=== PATIENT | female | born 1965 | race Caucasian/White ===

== ENCOUNTER 2019-09-22 13:24 | Emergency (ER) | payer MEDICAID, OTHER ==
[~2019-09-22] VITALS: Ht 162.6 cm; Wt 99.8 kg
[2019-09-22 15:04] LABS: Basophils # (auto) 0 uL; Basophils % (auto) 0.5 % (0.0-2.0); Eosinophils # (auto) 0.1 uL; Hematocrit 38.8 % (36.0-46.0); Hemoglobin 12.8 g/dL (12.2-16.2); Lymphocytes # (auto) 0.9 uL; Monocytes # (auto) 0.7 uL; Monocytes % (auto) 13.5 % (0.0-12.0); Neutrophils # (auto) 3.2 uL; Platelet Count (auto) 196 10^3/uL (140-450); Red Blood Cells 4.56 10^6/uL (4.0-5.20); Red Cell Distribution Width 15.6 % (11.8-14.3); White Blood Cell 4.9 10^3/uL (4.4-10.8)
[2019-09-22 15:13] VITALS: BP 122/83
[2019-09-22 15:24] LABS: Albumin 3.5 g/dL (3.4-5.0); Calcium 8.7 mg/dL (8.5-10.1); Chloride 106 mmol/L (98-107); Sodium 140 mmol/L (136-145)
[2019-09-22 15:32] LABS: Alanine Aminotransferase 16 U/L (13-56); Alkaline Phosphatase 88 U/L (45-117); Anion Gap 8 (5-15); Aspartate Aminotransferase 14 U/L (15-37); BUN/Creatinine Ratio 21.8; Bilirubin, Total 0.4 mg/dL (0.2-1.0); Blood Urea Nitrogen 17 mg/dL (7-18); Carbon Dioxide 26 mmol/L (21-32); GFR African American 99 mL/min; GFR Non-African American 82 mL/min; Glucose 111 mg/dL (74-106); Total Protein 7.5 g/dL (6.4-8.2)
[2019-09-22 17:19] LABS: Alcohol, Urine < 3.0 mg/dL (0-5); Amphetamine Screen, Urine NEGATIVE (NEGATIVE); Barbiturate Scree,Urine NEGATIVE (NEGATIVE); Benzodiazephine Screen, Urine NEGATIVE (NEGATIVE); Cannabinoid Screen, Urine NEGATIVE (NEGATIVE); Cocaine Screen, Urine NEGATIVE (NEGATIVE); Opiate Scree,Urine NEGATIVE (NEGATIVE); Phencyclidine Screen, Urine NEGATIVE (NEGATIVE)
== END 2019-09-22 17:39 | disposition home or self-care (01) ==
LOC: ER 13:24 → EDBD 13:24 → ER 17:39
DX: R55 Syncope and collapse (principal); I10 Essential (primary) hypertension
CPT/HCPCS: 36415; 70450; 71045; 74176; 80053; 80307; 84484; 85025; 93005

== ENCOUNTER 2020-03-30 04:30 | Inpatient (IN) | payer MEDICAID ==
[~2020-03-30] VITALS: Ht 170.2 cm; Wt 100.3 kg
[2020-03-30] MEDS ORDERED: SODIUM CHLORIDE 0.9% 1,000 ML IV ONE (06:27)
[2020-03-30 08:37] LABS: Eosinophils # (auto) 0.1 10 ^3/uL (0-0.8); Lymphocytes # (auto) 1.4 10 ^3/uL (0.4-5.4); Neutrophils # (auto) 5.9 10 ^3/uL (1.6-8.6); White Blood Cell 7.9 10^3/uL (4.4-10.8)
[2020-03-30 08:39] LABS: Basophils # (auto) 0.1 10 ^3/uL (0-0.2); Basophils % (auto) 0.7 % (0.0-2.0); Eosinophils % (auto) 1.4 % (0.0-7.0); Lymphocytes % (auto) 18.1 % (10.0-50.0); Mean Corpuscular Hemoglobin 17.5 pg (28.0-32.0); Mean Corpuscular Hgb Conc. 27.5 g/dL (32.0-36.0); Mean Corpuscular Volume 63.6 fL (80.0-100.0); Monocytes # (auto) 0.4 10 ^3/uL (0-1.3); Monocytes % (auto) 4.8 % (0.0-12.0); Platelet Count (auto) 307 10^3/uL (140-450); Red Blood Cells 2.82 10^6/uL (4.0-5.20); Red Cell Distribution Width 17.9 % (11.8-14.3)
[2020-03-30 08:52] LABS: Hemoglobin 4.9 g/dL (12.2-16.2)
[2020-03-30 08:57] LABS: Potassium 4.1 mmol/L (3.5-5.1)
[2020-03-30 09:05] LABS: Albumin 3.4 g/dL (3.4-5.0); BUN/Creatinine Ratio 28.6; Bilirubin, Total 0.5 mg/dL (0.2-1.0); Calcium 8.5 mg/dL (8.5-10.1); Total Protein 7.1 g/dL (6.4-8.2)
[2020-03-30 09:06] LABS: INR 1.01 (0.9-1.15); Partial Thromboplastin Time 20.5 sec (23.64-32.05)
[2020-03-30] MEDS ORDERED: medroxyPROGESTERone ACETATE 5 MG TAB PO ONE (11:15)
[2020-03-30 13:15] VITALS: BP 134/74
[2020-03-30] MEDS ORDERED: MORPHINE SULF INJ 2 MG/ML SYRINGE 1ML IV PRN ×3 (18:45→19:30)
[2020-03-30] MEDS ORDERED: NITROGLYCERIN 0.4 MG SL TAB SL PRN ×2 (18:45→19:30)
[2020-03-30] MEDS ORDERED: FUROSEMIDE 20 MG/2 ML VIAL IV PRN ×2 (19:00→19:30)
[2020-03-30] MEDS ORDERED: LORazepam 0.5 MG TAB PO PRN (19:30)
[2020-03-30] MEDS ORDERED: ONDANSETRON HCL 4 MG/2 ML VIAL IV PRN (19:30)
[2020-03-30] MEDS ORDERED: ALUM & MAG HYDROX-SIMETH LIQ(MAALOX) 30 ML PO PRN (19:30)
[2020-03-30] MEDS ORDERED: ACETAMINOPHEN 325 MG TAB PO PRN (19:30)
[2020-03-30] MEDS ORDERED: DOCUSATE SOD 100 MG CAP PO PRN (19:30)
[2020-03-30] MEDS ORDERED: HYDROcodone-ACET 5/325MG TAB PO PRN (19:30)
[2020-03-30] MEDS ORDERED: PANTOPRAZOLE 40 MG/10 ML VIAL INJ IV ONE (19:45)
[2020-03-30 20:07] LABS: Cholesterol 154 mg/dL (< 200); HDL Cholesterol 44 mg/dL (40-59); LDL Cholesterol 104 mg/dL (< 100); Triglycerides 72 mg/dL (< 150)
[2020-03-30] MEDS: SODIUM CHLORIDE 0.9% 1,000 ML IV SCH (20:37)
[2020-03-30 20:47] LABS: Urine Bacteria FEW /hpf (None Seen); Urine Blood 1+ /uL (Negative); Urine Mucus FEW (None Seen); Urine Specific Gravity 1.022 (1.001-1.035); Urine WBC 49 /hpf (0 - 5)
[2020-03-30 20:59] LABS: Amphetamine Screen, Urine NEGATIVE (NEGATIVE); Barbiturate Scree,Urine NEGATIVE (NEGATIVE); Benzodiazephine Screen, Urine NEGATIVE (NEGATIVE); Cannabinoid Screen, Urine NEGATIVE (NEGATIVE); Cocaine Screen, Urine NEGATIVE (NEGATIVE); Opiate Scree,Urine NEGATIVE (NEGATIVE); Phencyclidine Screen, Urine NEGATIVE (NEGATIVE)
[2020-03-30 22:30] VITALS: BP 124/61
[2020-03-30 22:45] VITALS: BP 122/62
[2020-03-31 00:45] VITALS: BP 121/66
[2020-03-31 03:57] LABS: Basophils # (auto) 0 10 ^3/uL (0-0.2); Basophils % (auto) 0.7 % (0.0-2.0); Eosinophils # (auto) 0.3 10 ^3/uL (0-0.8); Lymphocytes # (auto) 2.1 10 ^3/uL (0.4-5.4); Monocytes # (auto) 0.5 10 ^3/uL (0-1.3); Neutrophils # (auto) 3.5 10 ^3/uL (1.6-8.6); White Blood Cell 6.4 10^3/uL (4.4-10.8)
[2020-03-31 04:02] LABS: Eosinophils % (auto) 4.3 % (0.0-7.0); Mean Corpuscular Hemoglobin 22.6 pg (28.0-32.0); Mean Corpuscular Hgb Conc. 31.9 g/dL (32.0-36.0); Monocytes % (auto) 7.4 % (0.0-12.0); Neutrophils % (auto) 54.6 % (37.0-80.0); Nucleated Red Blood Cells % 0.1 %; Platelet Count (auto) 226 10^3/uL (140-450); Red Blood Cells 2.96 10^6/uL (4.0-5.20)
[2020-03-31 04:11] LABS: Hemoglobin 6.7 g/dL (12.2-16.2); Red Cell Distribution Width 25.2 % (11.8-14.3)
[2020-03-31 04:12] LABS: INR 1.07 (0.9-1.15); Partial Thromboplastin Time 22.3 sec (23.64-32.05)
[2020-03-31 04:13] LABS: % Iron Saturation 2.8 % (15-50)
[2020-03-31 04:17] LABS: Potassium 3.8 mmol/L (3.5-5.1)
[2020-03-31 04:24] LABS: Albumin 2.8 g/dL (3.4-5.0); BUN/Creatinine Ratio 24.2; Bilirubin, Total 0.8 mg/dL (0.2-1.0); Calcium 7.9 mg/dL (8.5-10.1); Magnesium 2.4 mg/dL (1.6-2.6); Phosphorus 3.4 mg/dL (2.5-4.90); Total Protein 6.1 g/dL (6.4-8.2)
[2020-03-31 04:25] LABS: Ferritin 5.6 ng/mL (10-322)
[2020-03-31 04:26] LABS: Folate (Folic Acid) 11.7 ng/mL (5.38-24)
[2020-03-31 05:15] VITALS: BP 131/71
[2020-03-31 05:30] VITALS: BP 137/78
[2020-03-31 08:39] LABS: Eosinophils # (auto) 0.4 10 ^3/uL (0-0.8); Eosinophils % (auto) 6.8 % (0.0-7.0); Lymphocytes # (auto) 1.9 10 ^3/uL (0.4-5.4); Mean Corpuscular Volume 72.6 fL (80.0-100.0); Neutrophils # (auto) 3.3 10 ^3/uL (1.6-8.6)
[2020-03-31 08:41] LABS: Basophils # (auto) 0.1 10 ^3/uL (0-0.2); Basophils % (auto) 0.8 % (0.0-2.0); Hematocrit 25.7 % (36.0-46.0); Hemoglobin 8.3 g/dL (12.2-16.2); Lymphocytes % (auto) 30.6 % (10.0-50.0); Mean Corpuscular Hemoglobin 23.3 pg (28.0-32.0); Mean Corpuscular Hgb Conc. 32.1 g/dL (32.0-36.0); Monocytes # (auto) 0.5 10 ^3/uL (0-1.3); Monocytes % (auto) 7.8 % (0.0-12.0); Platelet Count (auto) 243 10^3/uL (140-450); Red Blood Cells 3.54 10^6/uL (4.0-5.20); White Blood Cell 6.2 10^3/uL (4.4-10.8)
[2020-03-31] MEDS: PANTOPRAZOLE 40 MG/10 ML VIAL INJ IV SCH (09:53)
[2020-03-31] MEDS: cefTRIAXone 1GM/50ML D5W 50 ML IV SCH (09:53)
[2020-03-31 10:17] LABS: Hematocrit 26.3 % (36.0-46.0); Hemoglobin 8.1 g/dL (12.2-16.2)
[2020-03-31] MEDS: SODIUM CHLORIDE 0.9% 1,000 ML IV SCH (11:58)
[2020-03-31] MEDS ORDERED: SODIUM FERR GLUC 62.5MG/5ML 125 MG in SODIUM CHL 0.9% 100 ML IV SCH (12:00)
[2020-03-31 16:31] VITALS: BP 154/94
[2020-03-31] MEDS: amLODIPine BESYLATE 5 MG TAB PO SCH (18:48)
--- NOTE | 2020-03-31 19:30 | NUR ---
Opening Shift Note Assumed care of patient, awake and alert. No S/S of distress/SOB or pain. Instructed on POC and to callfor assist PRN, will continue to monitor for changes Q1hr and PRN.
[2020-03-31 22:00] VITALS: BP 141/78
[2020-04-01 05:00] VITALS: BP 135/72
[2020-04-01 06:16] LABS: Basophils # (auto) 0.1 10 ^3/uL (0-0.2); Hemoglobin 7.8 g/dL (12.2-16.2); Lymphocytes # (auto) 1.9 10 ^3/uL (0.4-5.4)
[2020-04-01 06:19] LABS: Basophils % (auto) 0.9 % (0.0-2.0); Eosinophils # (auto) 0.5 10 ^3/uL (0-0.8); Lymphocytes % (auto) 24.9 % (10.0-50.0); Mean Corpuscular Hemoglobin 23.1 pg (28.0-32.0); Mean Corpuscular Hgb Conc. 31.2 g/dL (32.0-36.0); Mean Corpuscular Volume 73.9 fL (80.0-100.0); Monocytes # (auto) 0.5 10 ^3/uL (0-1.3); Monocytes % (auto) 6.8 % (0.0-12.0); Neutrophils # (auto) 4.7 10 ^3/uL (1.6-8.6); Neutrophils % (auto) 60.4 % (37.0-80.0); Platelet Count (auto) 229 10^3/uL (140-450); Red Blood Cells 3.39 10^6/uL (4.0-5.20); White Blood Cell 7.7 10^3/uL (4.4-10.8)
[2020-04-01 06:26] LABS: Red Cell Distribution Width 26.4 % (11.8-14.3)
[2020-04-01 06:38] LABS: BUN/Creatinine Ratio 20.6; Calcium 8.2 mg/dL (8.5-10.1); Potassium 3.9 mmol/L (3.5-5.1)
--- NOTE | 2020-04-01 07:30 | NUR ---
Opening Shift Note Assumed care of patient, awake, alert, and oriented. No S/S of distress/SOB or pain. Bed in lowest/locked position, bed rails upx2, call light within reach. Instructed on POC and to call for assist PRN. Will continue to monitor for changes Q1hr and PRN.
[2020-04-01] MEDS: cefTRIAXone 1GM/50ML D5W 50 ML IV SCH (08:18)
[2020-04-01] MEDS: PANTOPRAZOLE 40 MG/10 ML VIAL INJ IV SCH (08:19)
[2020-04-01] MEDS: amLODIPine BESYLATE 5 MG TAB PO SCH (08:20)
--- NOTE | 2020-04-01 08:50 | NUR ---
MD ROUNDS DR TELLES AT BEDSIDE ASSESSING PATIENT AND DISCUSSING POC WITH PATIENT. NO NEW ORDERS AT THIS TIME. WILL CONTINUE TO MONITOR
[2020-04-01 09:00] VITALS: BP 132/74
[2020-04-01] MEDS ORDERED: FUROSEMIDE 20 MG TAB PO SCH (10:00)
[2020-04-01] MEDS ORDERED: POTASSIUM CHL 10 Meq TABLET PO SCH (10:00)
[2020-04-01 13:00] VITALS: BP 119/74
--- NOTE | 2020-04-01 13:15 | NUR ---
KOKI SPOKE WITH DR TELLES RE: PATIENT CLEARED FOR D/C. PER KOKI PATIENT IS TO CLEARED FOR D/C. PATIENT IS TO FOLLOW UP WITH PRIMARY CARE PROVIDER FOR REFERRAL FOR WELCOME DESK AGENT
[2020-04-01] MEDS ORDERED: NITROFURANTOIN 100 mg CAP PO ONE (14:30)
[2020-04-01] MEDS ORDERED: NITR-87 PO (14:32)
[2020-04-01] MEDS ORDERED: POTA-167 PO (14:32)
[2020-04-01] MEDS ORDERED: AML5T PO (14:32)
[2020-04-01] MEDS ORDERED: FUR20T PO (14:32)
--- NOTE | 2020-04-01 17:00 | NUR ---
Discharge instructions given as ordered. Encourage to follow up with PMD as instructed. All questions and concerns addressed. Patient verbalized understanding. IV removed with catheter intact, pressure dressing applied. Telemetry unit returned to ICU. Patient taken to vehicle via wheelchair with all personal belongings, accompanied by staff. No distress noted at time of departure.
[2020-04-01] MEDS ORDERED: NITROFURANTOIN 100 mg CAP PO SCH (22:00)
== END 2020-04-01 17:00 | disposition home or self-care (01) | DRG 532 ==
LOC: ER 04:30 → EDBD 04:30 → TELE 04:31 → TELE-WESTW 03-31 14:43
PROVIDERS: ADMIT Hospitalist; ATTEND Internal Medicine
PROC: 30233N1 Transfusion of Nonautologous Red Blood Cells into Peripheral Vein, Percutaneous Approach (ICD-10-PCS; principal; 2020-03-30)
PROC: 30233N1 Transfusion of Nonautologous Red Blood Cells into Peripheral Vein, Percutaneous Approach (ICD-10-PCS; 2020-03-31)
DX: D25.9 Leiomyoma of uterus, unspecified (principal); D62 Acute posthemorrhagic anemia; N39.0 Urinary tract infection, site not specified; E86.0 Dehydration; N92.1 Excessive and frequent menstruation with irregular cycle; N85.00 Endometrial hyperplasia, unspecified; E66.9 Obesity, unspecified; I10 Essential (primary) hypertension; Z98.51 Tubal ligation status; Z80.3 Family history of malignant neoplasm of breast; R93.89 Abnormal findings on diagnostic imaging of other specified body structures
CPT/HCPCS: 36415; 71045; 76856; 80048; 80053; 80061; 80307; 81001; 82607; 82728; 82746; 83010; 83036; 83540; 83550; 83615; 83735; 84100; 84443; 84484; 84702; 85014; 85018; 85025; 85045; 85610; 85652; 85730; 86038; 86850; 86900; 86901; 86920; 87040; 87086; 93306; 96361; 96374; C9113; G0378; J0696

== ENCOUNTER 2025-05-20 08:49 | Outpatient (CLI) | payer MEDICAID ==
[~2025-05-20] VITALS: Ht 167.6 cm; Wt 96.2 kg
[~2025-05-20 08:49] MED LIST: AML5T PO; FURO20TA4 PO; NITR-87 PO; POTA-211 PO
[2025-05-20] MEDS: MIDAZOLAM HCL 2MG/2ML 2ml VIAL (1mg/ml) IV ONE (09:30)
[2025-05-20] MEDS: fentaNYL CITRATE 100 MCG/2 ML VL IV ONE (09:30)
[2025-05-20] MEDS: fentaNYL CITRATE 100 MCG/2 ML VL ONE (09:53)
[2025-05-20] MEDS: MIDAZOLAM HCL 2MG/2ML 2ml VIAL (1mg/ml) ONE (09:53)
[2025-05-20 10:18] VITALS: BP 112/72; PULSE 71; RESP 22; TEMP 97.5; O2SAT 96
--- NOTE | 2025-05-20 10:27 | DVH ---
Procedure: CT CHEST WITHOUT CONTRAST Reason for study/Clinical History: POSSIBLE LUNG BIOPSY Comparison Study: None TECHNIQUE: Multidetector CT of the chest was performed from the lung apices to the upper abdomen with out the use of intravenous contract. Axial, coronal and sagittal multiplanar reformats were performed . Radiation Dose Information: CT Dose: CTDI volume is 14.17 mGy. Dose-length product is 525.15 mGy*cm The dose indicators for CT are the volume Computed Tomography (CT) Dose Index (CTDIvol) and the Dose Length Product (DLP), and are measured in units of mGy and mGy-cm, respectively. These indicators are not patient dose, but values generated from the CT scanner acquisition factors. The report includes radiation exposure data for exposures received during this examination. FINDINGS: Lower neck: Unremarkable. Lungs: No focal consolidation. 0.7 cm nodule in the right upper lobe, image 15 1.5 cm nodule in the right upper lobe, image 29. Heart/Vascular Structures: Normal heart size. No pericardial effusion. Lymph Nodes: No adenopathy Pleura: No pleural effusion or significant pneumothorax. Musculoskeletal: No acute osseous abnormality. Soft tissues: Normal. Upper abdomen: Limited portions of the upper abdomen are unremarkable. IMPRESSION: 0.7 cm nodule in the right upper lobe, image 15 1.5 cm nodule in the right upper lobe, image 29.
[2025-05-20 10:33] VITALS: BP 108/72; PULSE 65; RESP 17; O2SAT 92
[2025-05-20 10:48] VITALS: BP 115/76; PULSE 70; RESP 17; O2SAT 92
[2025-05-20 11:03] VITALS: BP 96/62; PULSE 66; RESP 16; O2SAT 96
[2025-05-20 11:18] VITALS: BP 94/60; PULSE 68; RESP 17; O2SAT 95
--- NOTE | 2025-05-20 11:54 | DVH ---
EXAM: XY CHEST PORTABLE Indication: POST LUNG BX Technique: Single frontal view of the chest was obtained Comparison: CT CHEST WITHOUT CONTRAST on DOS: 05/20/25, CT CHEST WITHOUT CONTRAST on DOS: 05/20/25 FINDINGS: Lines and Tubes: None Lungs: No focal consolidation. Pleura: No effusion. No pneumothorax. Cardiomediastinal contours: Unremarkable. Atherosclerotic vascular calcifications of the thoracic ao rta are noted. Bones: No acute osseous abnormality. IMPRESSION: No acute cardiopulmonary disease.
--- NOTE | 2025-05-20 15:28 | DVH ---
Procedure: CT CHEST WITHOUT CONTRAST Reason for study/Clinical History: RT LUNG BX Comparison Study: CT CHEST WITHOUT CONTRAST on DOS: 05/20/25 Exam Date: 05/20/2025 09:38 AM TECHNIQUE: Multidetector CT of the chest was performed from the lung apices to the upper abdomen with out the use of intravenous contract. Axial, coronal and sagittal multiplanar reformats were performed . Radiation Dose Information: CT Dose: CTDI volume is mGy. Dose-length product is mGy*cm The dose indicators for CT are the volume Computed Tomography (CT) Dose Index (CTDIvol) and the Dose Length Product (DLP), and are measured in units of mGy and mGy-cm, respectively. These indicators are not patient dose, but values generated from the CT scanner acquisition factors. The report includes radiation exposure data for exposures received during this examination. FINDINGS: Lower neck: Normal thyroid. Lungs: 8 mm solid right upper lobe nodule noted. Additional 5 mm nodule noted at the right lung apex. 21 Heart/Vascular Structures: Normal heart size. No pericardial effusion. Lymph Nodes: No adenopathy Pleura: No pleural effusion or significant pneumothorax. Musculoskeletal: No acute osseous abnormality. Soft tissues: Normal. Upper abdomen: Small gallstones seen. IMPRESSION: 1. 2 small nodules noted within the right upper lobe. Small gallstones seen. Radiation optimization: All CT scans at this facility use at least one of these dose optimization waldemar hniques: automated exposure control mA and/or kV adjustment per patient size (includes targeted exam s where dose is matched to clinical indication) or iterative reconstruction.
--- NOTE | 2025-05-20 15:28 | DVH ---
EXAM: CT CT GUIDED NEEDLEBIOPSY DATE OF SERVICE: 05/20/2025 09:38 AM ORDERING PHYSICIAN: GAURAV HOOKS REASON FOR EXAM: RT LUNG mass TECHNIQUE: Following standard prep and under CT guidance an 18 gauge core BioPince needle was advanc ed into the right upper lobe lung mass, 2 core biopsy specimens obtained. Follow-up CT obtained. COMPARISON: CT CHEST WITHOUT CONTRAST on DOS: 05/20/25 FINDINGS: No evidence of postprocedural pneumothorax. IMPRESSION: 1. Right lung biopsy as above End of Report
== END 2025-05-20 17:00 | disposition home or self-care (01) ==
LOC: CT 08:49
PROVIDERS: ATTEND Student in an Organized Health Care Education/Training Program
DX: R91.8 Other nonspecific abnormal finding of lung field (principal); B38.9 Coccidioidomycosis, unspecified; E04.1 Nontoxic single thyroid nodule; K80.20 Calculus of gallbladder without cholecystitis without obstruction; Z79.01 Long term (current) use of anticoagulants; Z79.899 Other long term (current) drug therapy; Z85.42 Personal history of malignant neoplasm of other parts of uterus; Z98.51 Tubal ligation status
CPT/HCPCS: 32408; 71045; 71250; 88305; 88312; 88342; J2250; J3010; 10005; 77012